=== PATIENT | female | born 1950 | race Hispanic/Latino ===

== ENCOUNTER → 2019-01-01 | Outpatient (CLI) | payer MEDICARE ==
--- NOTE | 2019-01-01 16:39 | Diagnostic Imaging Report ---
Exam: Bone mineral density study. Indication: Osteoporosis screening. The patient history questionnaire was completed and is available on PACS. Comparison: None Discussion: Evaluation of the left hip and lumbar spine was performed utilizing a Hologic bone densitometer. The study is technically adequate. The patient's fracture risk is compared to an age-matched control. The patient denies prior surgery/fracture of the spine, hips or forearm. Left femoral neck bone mineral density: 1.095 g/cm2, T-score is 2.2, Z-score is 3.8. Left hip total bone mineral density: 1.194 g/cm2, T-score is 2.1, Z-score is 3.3. Lumbar spine total bone mineral density: 1.091 gm/cm2, T-score is 0.4, Z-score is 2.2. Impression: 1. Bone mineralization is normal. Fracture risk is low. 2. With a Z score of 2.2, the bone mineral density is above normal for someone of this age. Recommendations: Medical evaluation for secondary causes of low bone mineral density may be appropriate. Correlate clinically for the necessity and timing of the next bone mineral density study. Staff: Rocio Signed by: Dr. Moises Chan M.D. on 01/01/2019 4:36 PM
== END ==
LOC: DX 10:53
PROVIDERS: ATTEND Internal Medicine
DX: Z13.820 Encounter for screening for osteoporosis (principal)
CPT/HCPCS: 77080